=== PATIENT | male | born 1965 | race Hispanic/Latino ===

== ENCOUNTER 2017-05-20 15:18 | Emergency (ER) | payer MEDICARE ==
[2017-05-20 16:32] LABS: Basophils % (Auto) 0.6 % (0.0-1.8); Eosinophils % (Auto) 1.5 % (0.0-4.3); Hematocrit 38.2 % (35.5-45.6); Hemoglobin 12.8 gm/dl (11.8-15.2); Mean Corpuscular HGB Conc 33 % (32-34); Mean Corpuscular Hemoglobin 30 pg (28-32); Mean Corpuscular Volume 89 fl (84-94); Platelet Count 340 K/mm3 (140-440); Red Cell Distribution Width 14.4 % (13.2-15.2); White Blood Count 18.4 K/mm3 (4.5-11.0)
[2017-05-20 16:50] LABS: Anion Gap 19 mmol/L; BUN/Creatinine Ratio 11.81; Blood Urea Nitrogen 13 mg/dL (9-20); Calcium 9.1 mg/dL (8.4-10.2); Carbon Dioxide 25 mmol/L (22-30); Glucose 82 mg/dL (75-100); Potassium 4.4 mmol/L (3.6-5.0); Sodium 132 mmol/L (137-145)
--- NOTE | 2017-05-20 21:06 | Emergency Department Report ---
HPI - General Chief Complaint: Psych Time Seen by Provider: 05/20/17 21:00 - HPI HPI: Chief complaint Bonifacio Varela myself This is a 52-year-old white male with a history of schizoaffective disorder, bipolar disorder, PTSD, alcohol abuse, cocaine abuse, benzodiazepine abuse who presents to the ED with the complaint of suicidal ideation. Patient stating Damari receive inpatient treatment for similar symptoms along with his substance abuse. He initially felt better but the past 2 days he has been having thought about abusing substances, and to kill himself, does not have a plan. Patient denies any chest pain shortness of breath. He states his been having some cough congestion and sinus drainage, that are draining nature. He said that those symptoms are usually the sign of a sinus infection that he gets often. ED Past Medical Hx - Past Medical History Previous Medical History?: Yes Hx Psychiatric Treatment: Yes (schizoeffective; bipolar; PTSD; ETOH abuse; Cocaine Abuse; Benzodiapine abu) - Surgical History Past Surgical History?: No - Family History Family history: hypertension - Social History Smoking Status: Current Every Day Smoker Substance Use Type: None, Alcohol, Cocaine, Other (benzo) - Medications Home Medications: Home Medications Medication Instructions Recorded Confirmed Last Taken Type Divalproex ER [DepaKOTE ER] 2 tab PO QHS 05/22/17 05/22/17 Unknown History [place] Carbonate ER [Lithobid ER] 450 mg PO BID 05/22/17 05/22/17 Unknown History Metoprolol [Lopressor] 25 mg PO BID 05/22/17 05/22/17 Unknown History Pantoprazole [Protonix] 40 mg PO QDAY 05/22/17 05/22/17 Unknown History QUEtiapine [SEROquel] 300 mg PO QHS 05/22/17 05/22/17 Unknown History ED Review of Systems ROS: Stated complaint: PSYCH EVAL Other details as noted in HPI Comment: All other systems reviewed and negative Constitutional: no symptoms reported ENT: congestion (facial pain), other Psychiatric: depression, suicidal thoughts Physical Exam - Physical Exam Vital Signs: Vital Signs 05/20/17 16:03 Temperature 98.4 F Pulse Rate 102 H Respiratory 16 Rate Blood Pressure 134/72 O2 Sat by Pulse 100 Oximetry Physical Exam: Vital signs reviewed Gen. alert and oriented 3 in no distress Head atraumatic normocephalic Maxillary sinus tenderness. Green nasal discharge. Eyes PERR LA EOMI Chest regular rate and rhythm normal S1-S2 lungs clear bilaterally Abdomen soft nondistended Back no point tenderness paravertebral tenderness Neuro no focal deficit. Psych normal mood. Extremities right great toe with chronic, dry-appearing ulcers healed ED Course Vital Signs 05/20/17 16:03 Temperature 98.4 F Pulse Rate 102 H Respiratory 16 Rate Blood Pressure 134/72 O2 Sat by Pulse 100 Oximetry - Reevaluation(s) Reevaluation #1: 05/24/17 01:41 Patient was reexamined per psychiatry demand, because of right great toe diabetic ulcer. Patient stated he has had this lesion for 4 months. Lesion examined by [facility]. appears dry, with granulations, without drainage. This appeared to be a healed right great toe ulcer. This should not keep patient from getting into a psychiatric facility. Patient is medically clear. ED Medical Decision Making - Lab Data Result diagrams: 05/20/17 16:19 05/20/17 16:19 Critical care attestation.: If time is entered above; I have spent that time in minutes in the direct care of this critically ill patient, excluding procedure time. ED Disposition Clinical Impression: Suicidal ideations, Sinusitis Disposition: DC/TX-65 PSY HOSP/PSY UNIT Is pt being admited?: No Does the pt Need Aspirin: No Condition: Stable Referrals: PRIMARY CARE, [Primary Care Provider] - 3-5 Days
[2017-05-20 21:40] LABS: Urine Drugs of Abuse Note Disclamer
[2017-05-20 22:01] LABS: Bilirubin,Urine NEG (Negative); Blood,Urine NEG (Negative); Ketones,Urine NEG (Negative); Leukocyte Esterase,Urine NEG (Negative); Nitrite,Urine NEG (Negative); Protein,Urine <15 mg/dL mg/dL (Negative); Urobilinogen,Urine < 2.0 mg/dL (<2.0)
[2017-05-21] MEDS ORDERED: TYLENOL ONE (21:39)
[2017-05-21] MEDS ORDERED: TYLENOL PO ONE (21:47)
[2017-05-22] MEDS: LOPRESSOR PO SCH ×2 (13:42→21:54)
--- NOTE | 2017-05-22 14:21 | Consultation ---
History of Present Illness - Reason for Consult Consult date: 05/22/17 Reason for consult: Mental Health Evalution Requesting physician: CITLALI PLUNKETT - Chief Complaint Chief complaint: "I need some help" - History of Present Psychiatric Illness This is a 52-year-old white male with a history of Bipolar DO. Today patient is calm, but irritable about wanting help during the assessment. He stated that he would overdose on pills if he does not get help for his Bipolar DO. He stated being manic for the past 4 days and suicidal. 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 He stated that this bothers him a lot and feel like "" is the next best thing. He admitted to a erratic sleep pattern this last week. He admit to attempting suicide in the past by overdosing on pills and putting a gun to his head. He stated that he pulled the trigger, but the gun jammed. 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 He denies HI's and AVH's. He denies recreational drug use and excessive alcohol consumption (etoh). Medications and Allergies Allergies Allergy/AdvReac Type Severity Reaction Status Date / Time chlorpromazine HCl Allergy Anaphylaxis Verified 05/20/17 16:11 [From Thorazine] codeine Allergy Anaphylaxis Verified 05/20/17 16:12 Home Medications Medication Instructions Recorded Confirmed Last Taken Type Divalproex ER [DepaKOTE ER] 2 tab PO QHS 05/22/17 05/22/17 Unknown History [place] Carbonate ER [Lithobid ER] 450 mg PO BID 05/22/17 05/22/17 Unknown History Metoprolol [Lopressor] 25 mg PO BID 05/22/17 05/22/17 Unknown History Pantoprazole [Protonix] 40 mg PO QDAY 05/22/17 05/22/17 Unknown History QUEtiapine [SEROquel] 300 mg PO QHS 05/22/17 05/22/17 Unknown History Active Meds: Active Medications Divalproex Sodium (Depakote Er) 1,000 mg PO QHS [facility] [place] Carbonate (Lithobid Er) 450 mg PO BID [facility] Metoprolol Tartrate (Lopressor) 25 mg PO BID [facility] Last Admin: 05/22/17 13:42 Dose: 25 mg Pantoprazole Sodium (Protonix) 40 mg PO QDAY [facility] Quetiapine Fumarate (Seroquel) 300 mg PO QHS [facility] Mental Status Exam - Vital signs Last Vital Signs Temp 98.2 F 05/22/17 08:15 Pulse 85 05/22/17 13:42 Resp 18 05/22/17 13:16 BP 141/91 05/22/17 13:42 Pulse Ox 98 05/22/17 13:16 - Exam Narrative exam: ROS: (+) possibly manic MSE: Appearance: cooperative, irritable Behavior: regular eye contact Speech: loud rate and tone Mood: "horrible" Affect: labile Thought Process: circumstantial Thought Content: denies SI and AVH's Motor Activity: sitting up in bed Cognition: A/Ox 3 Insight: limited Judgment: limited Results Result Diagrams: 05/20/17 16:19 05/20/17 16:19 All other labs normal. Assessment and Plan Assessment and plan: Impression: Historical Dx: Bipolar DO. Today patient is calm, but irritable about wanting help during the assessment. Patient has SI's. DDx: R/O MDD Recommendation/Plan: Continue 1013 with placement to inpatient psy services. Continue current medication regimen. [facility] and [place] serum in the AM.
[2017-05-22 14:54] LABS: Alanine Aminotransferase 8 units/L (7-56); Alkaline Phosphatase 80 units/L (35-129)
[2017-05-22] MEDS ORDERED: ESKALITH ONE (21:25)
[2017-05-22] MEDS: LITHOBID ER PO SCH (21:53)
[2017-05-23 08:58] LABS: Lithium 0.3 mmol/L (0.0-1.2); Valproate 9.2 ug/mL (50-100)
[2017-05-23] MEDS: LITHOBID ER PO SCH ×2 (10:40→23:05)
[2017-05-23] MEDS: PROTONIX PO SCH (10:40)
[2017-05-23] MEDS: LOPRESSOR PO SCH ×2 (11:17→22:05)
--- NOTE | 2017-05-24 10:00 | Progress Note ---
Subjective - Reason for Consult Consult date: 05/23/17 Reason for consult: follow up - Chief Complaint Chief complaint: late entry for 05/23/17 "I'm doing the same" This is a 52-year-old white male with a history of Bipolar DO. Today patient reports he feels the same as when he came in. He is taking lithium, depakote, and seroquel. He wants the Seroquel increased to 300mg like he takes at home. He is hyperverbal, loud, has pressured speech, and reports feeling manic. He continues to state that he would overdose on pills if he does not get help for his Bipolar DO. He denies homicidal ideation and does not display signs of psychosis. His lithium level was 0.3 and depakote level 9.2. He is awaiting placement at a psychiatric facility. He reports having a wound under his right great toe. He also wants his Xarelto restarted. Mental Status Exam - Vital signs Last Vital Signs Temp 98.2 F 05/24/17 08:35 Pulse 72 05/24/17 08:35 Resp 18 05/24/17 08:35 BP 142/94 05/24/17 08:35 Pulse Ox 99 05/24/17 08:35 Assessment and Plan Mental Status Exam: ROS: (+) ira MSE: Appearance: cooperative, irritable Behavior: regular eye contact Speech: loud rate, hyperverbal, pressured Mood: depressed Affect: labile Thought Process: circumstantial Thought Content: denies SI and AVH Motor Activity: restless Cognition: A/Ox 3 Insight: limited Judgment: limited Assessment and plan: Impression: Bipolar DO, current episode mixed manic Suicidal ideation present with a plan [place] & Depakote level reviewed DDx: R/O MDD Recommendation/Plan: Continue 1013 with placement to inpatient psy services. Increase Seroquel to 300mg hs as an adjunct agent for mood. continue Depakote and [place] for bipolar disorder The charge nurse was informed of patient's report of wound and request for Xarelto, his home medication.
[2017-05-24] MEDS: LOPRESSOR PO SCH ×2 (10:40→22:10)
[2017-05-24] MEDS: PROTONIX PO SCH (10:41)
[2017-05-24] MEDS: LITHOBID ER PO SCH ×2 (11:02→22:11)
--- NOTE | 2017-05-24 13:07 | Progress Note ---
Subjective - Reason for Consult Consult date: 05/24/17 Reason for consult: follow up - Chief Complaint Chief complaint: "I'm a little better today." This is a 52-year-old white male with a history of Bipolar DO. Today patient reports feeling a little better as far the manic symptoms but is having urges to drink. He denies withdrawal symptoms. He is taking lithium, depakote, and seroquel. The Seroquel was increased to 300mg last night and denies side effects. He is hyperverbal, loud, has pressured speech to a lesser extent. He lacks awareness of personal boundaries. He denies homicidal ideation and does not display signs of psychosis. His lithium level was 0.3 and depakote level 9.2 05/23/17.. He is awaiting placement at a psychiatric facility. He reports having a wound under his right great toe. He also wants his Xarelto restarted. Mental Status Exam - Vital signs Last Vital Signs Temp 98.2 F 05/24/17 08:35 Pulse 72 05/24/17 08:35 Resp 18 05/24/17 08:35 BP 142/94 05/24/17 08:35 Pulse Ox 99 05/24/17 08:35 Assessment and Plan Mental Status Exam: ROS: (+) ira MSE: Appearance: cooperative Behavior: regular eye contact Speech: loud rate, hyperverbal, pressured Mood: depressed Affect: labile Thought Process: circumstantial Thought Content: denies SI and AVH Motor Activity: less restless Cognition: A/Ox 3 Insight: limited Judgment: limited Assessment and plan: Impression: Bipolar DO, current episode mixed manic Suicidal ideation present with a plan [place] & Depakote level reviewed DDx: R/O MDD Recommendation/Plan: Continue 1013 with placement to inpatient psy services. Continue Seroquel 300mg hs as an adjunct agent for mood. continue Depakote and [place] for bipolar disorder The charge nurse was informed 05/23/17 of patient's report of wound and request for Xarelto, his home medication.
[2017-05-25] MEDS: PROTONIX PO SCH (10:04)
[2017-05-25] MEDS: LOPRESSOR PO SCH ×2 (10:04→22:45)
[2017-05-25] MEDS: LITHOBID ER PO SCH ×2 (10:04→22:45)
--- NOTE | 2017-05-25 13:14 | Progress Note ---
Subjective - Reason for Consult Consult date: 05/25/17 Reason for consult: Psychiatry Follow-up - Chief Complaint Chief complaint: "I am not suicidal" This is a 52-year-old white male with a history of Bipolar DO. Today patient is calm and cooperative during the assessment. He denies SI/HI's and he mentioned that resting well last night. Patient is not hyper verbal today as he was previously. He was pleasant and answered all my questions when asked. Per the staff, no behavioral disturbances overnight. He denies AVH's and depression symptoms. He denies any side effects of his medication. Mental Status Exam - Vital signs Last Vital Signs Temp 98.5 F 05/25/17 08:02 Pulse 66 05/25/17 10:04 Resp 18 05/25/17 08:02 BP 167/88 05/25/17 10:04 Pulse Ox 97 05/25/17 08:02 - Exam Narrative exam: MSE: Appearance: calm, cooperative Behavior: regular eye contact Speech: regular rate and tone Mood: "better" Affect: congruent to mood Thought Process: circumstantial Thought Content: denies SI/HI's and AVH's Motor Activity: sitting up in bed Cognition: A/Ox 3 Insight: limited Judgment: limited Assessment and Plan Impression: Historical Dx: Bipolar DO. Today patient is calm and cooperative. Patient denies SI/HI's. Patient is homeless Recommendation/Plan: Continue 1013 with placement to inpatient psy services. Continue current medication regimen.
[2017-05-26] MEDS: LITHOBID ER PO SCH ×2 (10:14→22:13)
[2017-05-26] MEDS: PROTONIX PO SCH (10:15)
[2017-05-26] MEDS: LOPRESSOR PO SCH ×2 (10:20→22:13)
--- NOTE | 2017-05-26 11:13 | Progress Note ---
Subjective - Reason for Consult Consult date: 05/26/17 Reason for consult: Psychiatry Follow-up - Chief Complaint Chief complaint: "I am ready to leave" This is a 52-year-old white male with a history of Bipolar DO. Today patient is calm and cooperative during the assessment. Patient is pleasant during our conversation. He denies SI/HI's and AVH's. Patient is not hyper verbal today. He stated that he sleep well last night. Per the staff, no behavioral disturbances overnight. He denies AVH's and depression symptoms. He denies any side effects of his medication. Mental Status Exam - Vital signs Last Vital Signs Temp 98.7 F 05/25/17 20:41 Pulse 70 05/25/17 22:45 Resp 16 05/25/17 20:41 BP 158/89 05/25/17 22:45 Pulse Ox 99 05/25/17 20:41 - Exam Narrative exam: MSE: Appearance: calm, cooperative Behavior: regular eye contact Speech: regular rate and tone Mood: "better" Affect: congruent to mood Thought Process: circumstantial Thought Content: denies SI/HI's and AVH's Motor Activity: sitting up in bed Cognition: A/Ox 3 Insight: limited Judgment: limited Assessment and Plan Impression: Historical Dx: Bipolar DO. Today patient is calm and cooperative. Patient denies SI/HI's. Patient is homeless Recommendation/Plan: Evaluate 1013 in 24 hours to determine proper dispo. Continue current medication regimen. Why/[facility] ordered tomorrow morning.
[2017-05-27 08:37] LABS: Lithium 0.5 mmol/L (0.0-1.2); Valproate 33.4 ug/mL (50-100)
[2017-05-27] MEDS: LOPRESSOR PO SCH (10:46)
[2017-05-27] MEDS: PROTONIX PO SCH (10:46)
[2017-05-27] MEDS: LITHOBID ER PO SCH (10:46)
[2017-05-27 10:47] VITALS: BP 134/82
--- NOTE | 2017-05-27 17:12 | Progress Note ---
Subjective - Reason for Consult Consult date: 05/27/17 Reason for consult: follow-up - Chief Complaint Chief complaint: "I am ready to leave" This is a 52-year-old white male with a history of Bipolar DO. Today patient is calm and cooperative during the assessment. Patient is pleasant during our conversation. He denies suicidal or homicidal ideation. No psychotic symptoms reported and no signs observed. His speech is not pressured as it has been. He reports his sleep and appetite are appropriate. He expresses future oriented thinking and planning. He denies withdrawal symptoms from alcohol. He is past the point withdrawal. He denies urges to drink but plans to follow- up with AA. His primary objective is to find an apartment and go to outpatient substance abuse treatment. Mental Status Exam - Vital signs Last Vital Signs Temp 97.8 F 05/27/17 11:06 Pulse 93 H 05/27/17 11:06 Resp 18 05/27/17 11:06 BP 134/82 05/27/17 11:06 Pulse Ox 98 05/27/17 11:06 Assessment and Plan MSE: Appearance: cooperative Behavior: regular eye contact Speech: Regular rate and rhythm Mood: "Good" Affect: Appropriate Thought Process: Linear and goal oriented Thought Content: denies SI. Denies homicidal ideation and AVH Motor Activity: No abnormal movements Cognition: A/Ox 3 Insight: Improved, fair Judgment: Fair I. This screening and assessment is based on information collected from the following sources: Patient II. SUICIDE RISK SCREENING (within last 30 days): A.) Suicidal thoughts/behaviors: When he initially presented to the emergency department he expressed suicidal ideation. The crisis has subsided. He currently does not have suicidal ideation and has not had suicidal ideation for several days now. *Describe details of recent ideation or attempt: None SUICIDE RISK ASSESSMENT III. FACTORS THAT INCREASE RISK: A.) Demographic and Substance Use Factors: B.) Current/Recent Factors (within past 3 months): Psychosocial/Environmental Factors: Needs housing Physical Illness: has vascular disease Cognitive/Psychological Factors: Recent Jane C.) Historical Factors: History of bipolar disorder. D.) Diagnostic/Symptom/Treatment Factors: Jane has resolved E.) Acute Risk Factor Severity Mild Other factors for this individual that increase risk: None IV. FACTORS THAT DECREASE RISK: Resilience/Protective Factors: Other factors for this individual that decrease risk: Patient is compliant with psychiatric medications. Patient is not intoxicated and plans to continue abstinence from alcohol. V. Clinician's Formulation of Risk and Determination of level of Care: The acute symptoms are resolved and his current presentation lends itself to outpatient treatment and appears support meetings. Estimation of Imminent Risk: Low risk Determination of Level of Care based on Suicide Risk: Outpatient psychiatric treatment and 12-step peer support meetings Narrative description of clinical reasoning. (This must be completed on all patients): The patient initially presented to the hospital he was withdrawing from alcohol and experiencing a manic episode. His lithium is currently therapeutic and he is now back on Depakote. He has a plan to follow up is with his outpatient psychiatric provider. He is no longer experiencing withdrawal symptoms from alcohol and does not require further detox. He denies any urges to drink and expresses future and goal oriented thinking and planning. He plans to find housing and has funds available to do so. He also has plans to attend AA meetings, 90 meetings in 90 days. . Plan and Interventions based on Suicide Risk: follow-up with outpatient mental health VII. Discharge/After Hours Support Plan: {AFTER HOURS SUPPORT PLAN} Call 911 for suicidal or homicidal ideation Assessment and plan: Impression: Bipolar DO, most recent episode mixed manic Crisis has resolved. No suicidal ideation reported and there are no acute safety concerns reported by the patient or staff. Alcohol use disorder. Withdrawal symptoms are not present. There is no indication to go to an inpatient facility for detox. [place] level is therapeutic at 0.5 Depakote level is 33.4 Recommendation/Plan: Rescind 1013 and follow-up with outpatient mental health. A list of AA meetings will be provided. Patient reports having the funds available to obtain an apartment or living arrangement
--- NOTE | 2017-05-27 19:18 | Emergency Department Report ---
HPI - General Chief Complaint: Psych Time Seen by Provider: 05/20/17 21:00 ED Past Medical Hx - Past Medical History Previous Medical History?: Yes Hx Psychiatric Treatment: Yes (schizoeffective; bipolar; PTSD; ETOH abuse; Cocaine Abuse; Benzodiapine abu) - Surgical History Past Surgical History?: No - Social History Smoking Status: Current Every Day Smoker Substance Use Type: None, Alcohol, Cocaine, Other (benzo) - Medications Home Medications: Home Medications Medication Instructions Recorded Confirmed Last Taken Type Divalproex ER [DepaKOTE ER] 2 tab PO QHS 05/22/17 05/22/17 Unknown History [place] Carbonate ER [Lithobid ER] 450 mg PO BID 05/22/17 05/22/17 Unknown History Metoprolol [Lopressor] 25 mg PO BID 05/22/17 05/22/17 Unknown History Pantoprazole [Protonix] 40 mg PO QDAY 05/22/17 05/22/17 Unknown History QUEtiapine [SEROquel] 300 mg PO QHS 05/22/17 05/22/17 Unknown History ED Review of Systems ROS: Stated complaint: PSYCH EVAL Other details as noted in HPI Constitutional: no symptoms reported ENT: congestion (facial pain), other Psychiatric: depression, suicidal thoughts Physical Exam - Physical Exam Vital Signs: Vital Signs 05/20/17 05/21/17 05/21/17 16:03 10:07 12:27 Temperature 98.4 F 98 F Pulse Rate 102 H 102 H Respiratory 16 20 16 Rate Blood Pressure 134/72 Blood Pressure 170/98 [Right] O2 Sat by Pulse 100 99 100 Oximetry 05/21/17 05/22/17 05/22/17 20:07 08:15 08:17 Temperature 97.9 F 98.2 F Pulse Rate 81 82 Respiratory 17 14 14 Rate Blood Pressure Blood Pressure 139/93 151/85 [Right] O2 Sat by Pulse 99 97 97 Oximetry 05/22/17 05/22/17 05/22/17 13:16 13:42 23:00 Temperature 98.8 F Pulse Rate 85 85 75 Respiratory 18 16 Rate Blood Pressure 141/91 Blood Pressure 141/91 142/88 [Right] O2 Sat by Pulse 98 100 Oximetry 05/23/17 05/23/17 05/23/17 11:00 11:17 23:00 Temperature 98 F 98.5 F Pulse Rate 75 75 67 Respiratory 20 16 Rate Blood Pressure 139/89 Blood Pressure 139/89 145/89 [Right] O2 Sat by Pulse 98 98 Oximetry 05/24/17 05/25/17 05/25/17 08:35 08:02 10:04 Temperature 98.2 F 98.5 F Pulse Rate 72 66 66 Respiratory 18 18 Rate Blood Pressure 167/88 Blood Pressure 142/94 167/88 [Right] O2 Sat by Pulse 99 97 Oximetry 05/25/17 05/25/17 05/26/17 20:41 22:45 08:30 Temperature 98.7 F 98.6 F Pulse Rate 70 70 81 Respiratory 16 20 Rate Blood Pressure 158/89 Blood Pressure 158/89 124/77 [Right] O2 Sat by Pulse 99 100 Oximetry 05/26/17 05/26/17 05/27/17 10:20 20:37 10:46 Temperature 98.6 F Pulse Rate 81 74 93 H Respiratory 17 Rate Blood Pressure 124/77 134/82 Blood Pressure 161/83 [Right] O2 Sat by Pulse 100 Oximetry 05/27/17 11:06 Temperature 97.8 F Pulse Rate 93 H Respiratory 18 Rate Blood Pressure Blood Pressure 134/82 [Right] O2 Sat by Pulse 98 Oximetry ED Course Vital Signs 05/20/17 05/21/17 05/21/17 16:03 10:07 12:27 Temperature 98.4 F 98 F Pulse Rate 102 H 102 H Respiratory 16 20 16 Rate Blood Pressure 134/72 Blood Pressure 170/98 [Right] O2 Sat by Pulse 100 99 100 Oximetry 05/21/17 05/22/17 05/22/17 20:07 08:15 08:17 Temperature 97.9 F 98.2 F Pulse Rate 81 82 Respiratory 17 14 14 Rate Blood Pressure Blood Pressure 139/93 151/85 [Right] O2 Sat by Pulse 99 97 97 Oximetry 05/22/17 05/22/17 05/22/17 13:16 13:42 23:00 Temperature 98.8 F Pulse Rate 85 85 75 Respiratory 18 16 Rate Blood Pressure 141/91 Blood Pressure 141/91 142/88 [Right] O2 Sat by Pulse 98 100 Oximetry 05/23/17 05/23/17 05/23/17 11:00 11:17 23:00 Temperature 98 F 98.5 F Pulse Rate 75 75 67 Respiratory 20 16 Rate Blood Pressure 139/89 Blood Pressure 139/89 145/89 [Right] O2 Sat by Pulse 98 98 Oximetry 05/24/17 05/25/17 05/25/17 08:35 08:02 10:04 Temperature 98.2 F 98.5 F Pulse Rate 72 66 66 Respiratory 18 18 Rate Blood Pressure 167/88 Blood Pressure 142/94 167/88 [Right] O2 Sat by Pulse 99 97 Oximetry 05/25/17 05/25/17 05/26/17 20:41 22:45 08:30 Temperature 98.7 F 98.6 F Pulse Rate 70 70 81 Respiratory 16 20 Rate Blood Pressure 158/89 Blood Pressure 158/89 124/77 [Right] O2 Sat by Pulse 99 100 Oximetry 05/26/17 05/26/17 05/27/17 10:20 20:37 10:46 Temperature 98.6 F Pulse Rate 81 74 93 H Respiratory 17 Rate Blood Pressure 124/77 134/82 Blood Pressure 161/83 [Right] O2 Sat by Pulse 100 Oximetry 05/27/17 11:06 Temperature 97.8 F Pulse Rate 93 H Respiratory 18 Rate Blood Pressure Blood Pressure 134/82 [Right] O2 Sat by Pulse 98 Oximetry ED Medical Decision Making - Lab Data Result diagrams: 05/20/17 16:19 05/20/17 16:19 - Medical Decision Making Discussed asked the patient he is ready to be discharged. 1013 was rescinded by psychiatry. Patient is calm and has resources. Plan at discharge. Critical care attestation.: If time is entered above; I have spent that time in minutes in the direct care of this critically ill patient, excluding procedure time. ED Disposition Clinical Impression: Bipolar disorder Disposition: DC/TX-65 PSY HOSP/PSY UNIT Is pt being admited?: No Condition: Poor Instructions: Bipolar Disorder (ED), Suicide Prevention for Adults (ED), Abuse of Alcohol (ED) Additional Instructions: Follow-up with her primary care for appropriate social media developer Referrals: MACK PHOENIX MD [Primary Care Provider] - 3-5 Days
== END 2017-05-27 21:04 ==
LOC: EEVIPCON 15:18 → ED 15:18
DX: F31.9 Bipolar disorder, unspecified (principal); F20.9 Schizophrenia, unspecified; F14.10 Cocaine abuse, uncomplicated; F17.210 Nicotine dependence, cigarettes, uncomplicated
CPT/HCPCS: 36415; 80048; 80164; 80178; 80307; 81001; 84075; 84450; 84460; 85025; 99285; G0480; 80320; 99283; 99284

== ENCOUNTER 2017-06-05 17:04 | Emergency (ER) | payer SELFPAY ==
[2017-06-05 19:08] LABS: Basophils % (Auto) 0.7 % (0.0-1.8); Eosinophils % (Auto) 3.3 % (0.0-4.3); Hematocrit 40.7 % (35.5-45.6); Hemoglobin 13.4 gm/dl (11.8-15.2); Mean Corpuscular HGB Conc 33 % (32-34); Mean Corpuscular Hemoglobin 30 pg (28-32); Mean Corpuscular Volume 91 fl (84-94); Platelet Count 255 K/mm3 (140-440); Red Blood Count 4.48 M/mm3 (3.65-5.03); Red Cell Distribution Width 14.9 % (13.2-15.2); White Blood Count 11.2 K/mm3 (4.5-11.0)
[2017-06-05 19:20] LABS: Alanine Aminotransferase 7 units/L (7-56); Albumin 4.6 g/dL (3.9-5); Albumin/Globulin Ratio 1.8 %; Alkaline Phosphatase 88 units/L (35-129); Anion Gap 18 mmol/L; Blood Urea Nitrogen 18 mg/dL (9-20); Calcium 9.5 mg/dL (8.4-10.2); Carbon Dioxide 25 mmol/L (22-30); Chloride 95.2 mmol/L (98-107); Glucose 116 mg/dL (75-100); Potassium 4.4 mmol/L (3.6-5.0); Sodium 134 mmol/L (137-145); Total Protein 7.2 g/dL (6.3-8.2)
--- NOTE | 2017-06-05 21:13 | Emergency Department Report ---
HPI - General Chief Complaint: Psych Time Seen by Provider: 06/05/17 20:15 - HPI HPI: This is a 52-year-old male presents to the emergency department by EMS with complaint of nausea, vomiting, diarrhea and some thoughts of harming himself without a plan. The patient was recently here and spent close to a week with an exacerbation of his schizoaffective and bipolar disorder. He then went to a place called [facility] which is a drug and alcohol free residence and the patient says that he has not had any of the illicit substances or alcohol since mid May. However since being at this [employer] [facility] [employer], patient has been unable to get his lithium until yesterday. Because of this he feels like he is once again having exacerbation of his psychiatric illnesses. He is having racing thoughts and has thoughts of harming himself but does not have a plan is how he would do it. He denies any auditory or visual hallucinations. When he started having the thoughts of harming himself he decided he should call EMS. He denies any current nausea or vomiting but still has some diarrhea. ED Past Medical Hx - Past Medical History Hx Psychiatric Treatment: Yes (schizoeffective; bipolar; PTSD; ETOH abuse; Cocaine Abuse; Benzodiapine abu) - Social History Smoking Status: Current Every Day Smoker Substance Use Type: None - Medications Home Medications: Home Medications Medication Instructions Recorded Confirmed Last Taken Type Divalproex ER [DepaKOTE ER] 2 tab PO QHS 05/22/17 06/05/17 06/05/17 History [place] Carbonate ER [Lithobid ER] 450 mg PO BID 05/22/17 06/05/17 06/05/17 History Metoprolol [Lopressor] 25 mg PO BID 05/22/17 06/05/17 06/05/17 History QUEtiapine [SEROquel] 300 mg PO QHS 05/22/17 06/05/17 06/05/17 History Gabapentin [Neurontin] 100 mg PO Q8HR 06/05/17 06/05/17 06/05/17 History Rivaroxaban [Xarelto] 20 mg PO QDAY 06/05/17 06/05/17 06/05/17 History ED Review of Systems ROS: Stated complaint: SUICIDAL THOUGHTS Other details as noted in HPI Comment: All other systems reviewed and negative Constitutional: denies: chills, fever Eyes: denies: eye pain, eye discharge, vision change ENT: denies: ear pain, throat pain Respiratory: denies: cough, shortness of breath, wheezing Cardiovascular: denies: chest pain, palpitations Gastrointestinal: nausea, vomiting, diarrhea Genitourinary: denies: urgency, dysuria Musculoskeletal: denies: back pain, joint swelling, arthralgia Skin: denies: rash, lesions Neurological: denies: headache, weakness, paresthesias Psychiatric: suicidal thoughts. denies: auditory hallucinations, visual hallucinations, homicidal thoughts Physical Exam - Physical Exam Vital Signs: Vital Signs 06/05/17 18:23 Temperature 98.7 F Pulse Rate 74 Respiratory 16 Rate Blood Pressure 127/90 Blood Pressure 127/90 [Right] O2 Sat by Pulse 100 Oximetry Physical Exam: GENERAL: The patient is well-developed well-nourished. HEENT: Normocephalic. Atraumatic. Extraocular motions are intact. Patient has moist mucous membranes. Pupils equal reactive to light bilaterally. NECK: Supple. Trachea is midline. CHEST/LUNGS: Clear to auscultation. There is no respiratory distress noted. HEART/CARDIOVASCULAR: Regular. There is no tachycardia. There is no gallop rub or murmur. ABDOMEN: Abdomen is soft, nontender. Patient has normal bowel sounds. There is no abdominal distention. SKIN: Skin is warm and dry. NEURO: The patient is awake, alert, and oriented. The patient is cooperative. The patient has no focal neurologic deficits. The patient has normal speech and gait. MUSCULOSKELETAL: There is no tenderness or deformity. There is no limitation range of motion. There is no evidence of acute injury. ED Course Vital Signs 06/05/17 18:23 Temperature 98.7 F Pulse Rate 74 Respiratory 16 Rate Blood Pressure 127/90 Blood Pressure 127/90 [Right] O2 Sat by Pulse 100 Oximetry ED Medical Decision Making - Lab Data Result diagrams: 06/05/17 18:33 06/05/17 18:33 - Medical Decision Making 52-year-old male with history of schizoaffective and bipolar disorder presents with some suicidal thoughts without a plan. The patient was without his lithium for about 5 days until yesterday. On labs he does not appear subtherapeutic on the lithium but he does with the Depakene. His labs are mostly unremarkable otherwise and do not show any etiology of his symptoms. Vital signs stable. Patient appears medically cleared for psychiatric placement. He has been made a 1013 secondary to the suicidal ideations and the behavioral counselor has been contacted to assist with placement. - Differential Diagnosis schizophrenia, schizoaffective, bipolar, depression Critical Care Time: No Critical care attestation.: If time is entered above; I have spent that time in minutes in the direct care of this critically ill patient, excluding procedure time. ED Disposition Clinical Impression: Suicidal ideations Bipolar disorder Qualifiers: Active/Remission status: remission status unspecified Qualified Code(s): F31.9 - Bipolar disorder, unspecified Schizoaffective disorder Qualifiers: Schizoaffective disorder type: unspecified Qualified Code(s): F25.9 - Schizoaffective disorder, unspecified Disposition: [id number] PSY HOSP/PSY UNIT Is pt being admited?: No Condition: Stable Referrals: PRIMARY CARE, [Primary Care Provider] - 3-5 Days Time of Disposition: 22:06
[2017-06-05 21:41] LABS: Lithium 0.5 mmol/L (0.0-1.2)
[2017-06-05 21:44] LABS: Valproate < 2.8 ug/mL (50-100)
[2017-06-05] MEDS: LITHOBID ER PO SCH (23:01)
[2017-06-05] MEDS: LOPRESSOR PO SCH (23:03)
[2017-06-05] MEDS: NEURONTIN PO SCH (23:06)
[2017-06-06] MEDS: NEURONTIN PO SCH ×3 (07:57→21:39)
[2017-06-06] MEDS: LOPRESSOR PO SCH ×2 (10:05→21:38)
[2017-06-06] MEDS: LITHOBID ER PO SCH ×2 (10:05→21:38)
[2017-06-06] MEDS: XARELTO PO SCH (11:36)
[2017-06-06] MEDS ORDERED: KEFLEX PO ONE (14:26)
[2017-06-06] MEDS ORDERED: KEFLEX ONE ×2 (16:42→16:44)
[2017-06-07] MEDS: LITHOBID ER PO SCH ×2 (10:57→22:24)
[2017-06-07] MEDS: NEURONTIN PO SCH ×3 (10:57→22:23)
[2017-06-07] MEDS: XARELTO PO SCH (10:57)
[2017-06-07] MEDS: LOPRESSOR PO SCH ×2 (10:58→22:24)
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
[2017-06-08] MEDS: NEURONTIN PO SCH ×3 (08:31→21:58)
[2017-06-08] MEDS: XARELTO PO SCH (08:32)
[2017-06-08] MEDS: LOPRESSOR PO SCH ×2 (09:42→21:58)
[2017-06-08] MEDS: LITHOBID ER PO SCH ×2 (09:44→21:58)
--- NOTE | 2017-06-08 12:59 | Progress Note ---
Subjective - Reason for Consult Consult date: 06/08/17 Reason for consult: Psychiatry Follow-up - Chief Complaint Chief complaint: "I don't feel good" This is a 52-year-old male presents to the emergency department by EMS with complaint of nausea, vomiting, diarrhea and some thoughts of harming himself without a plan. Patient is known to me. Today patient is calm and cooperative during assessment. He stated that the voices have increased. He stated that he thought about suicide last night and could not sleep. He was adamant about wanting the voices to stop. Also, he stated that his sleep needs to get better. He denies any side effects of his medications. Mental Status Exam - Vital signs Last Vital Signs Temp 97.9 F 06/08/17 07:46 Pulse 74 06/08/17 09:42 Resp 16 06/08/17 07:46 BP 131/80 06/08/17 09:42 Pulse Ox 100 06/08/17 07:46 - Exam Narrative exam: MSE: Appearance: calm, cooperative Behavior: regular eye contact Speech: Regular rate and rhythm Mood: "not good" Affect: flat Thought Process: circumstantial Thought Content: denies HI's and AVH's Motor Activity: lying in bed Cognition: A/Ox 3 Insight: limited Judgment: limited Assessment and Plan Impression: Historical Dx: Bipolar DO, PTSD, and Alcoholism. Today patient is calm and cooperative during the assessment. Active SI's. No alcohol withdrawals noted. VA 32.9 Recommendation/Plan: Continue 1013 with placement to inpatient psy services. Continue current medication treatment with modification to Seroquel (400 mg PO HS).
--- NOTE | 2017-06-09 10:10 | Progress Note ---
Subjective - Reason for Consult Consult date: 06/09/17 Reason for consult: Mental Health Evaluation - Chief Complaint Chief complaint: "I feel better" This is a 52-year-old male presents to the emergency department by EMS with complaint of nausea, vomiting, diarrhea and some thoughts of harming himself without a plan. Patient is known to me. Today patient is calm and cooperative during assessment. He stated that the voices have decreased along with the SI's. He wants to return to his group once discharged ([facility]) . He stated that he slept well last night. He denies any side effects of his medications. Mental Status Exam - Vital signs Last Vital Signs Temp 98.4 F 06/09/17 08:20 Pulse 88 06/09/17 08:20 Resp 20 06/09/17 08:20 BP 130/84 06/09/17 08:20 Pulse Ox 100 06/09/17 08:20 - Exam Narrative exam: MSE: Appearance: calm, cooperative Behavior: regular eye contact Speech: Regular rate and rhythm Mood: "a little better" Affect: flat Thought Process: circumstantial Thought Content: denies HI's and VH's, Passive SI's Motor Activity: lying in bed Cognition: A/Ox 3 Insight: variable Judgment: variable Assessment and Plan Impression: Historical Dx: Bipolar DO, PTSD, and Alcoholism. Today patient is calm and cooperative during the assessment. Passive SI's. VA 32.9 Recommendation/Plan: Continue 1013 with placement to inpatient psy services. Continue current medication regimen.
[2017-06-09] MEDS: NEURONTIN PO SCH ×3 (10:21→22:29)
[2017-06-09] MEDS: LOPRESSOR PO SCH ×2 (10:32→22:29)
[2017-06-09] MEDS: XARELTO PO SCH (13:30)
[2017-06-09] MEDS: LITHOBID ER PO SCH ×2 (13:30→22:29)
[2017-06-10] MEDS: NEURONTIN PO SCH ×2 (07:02→14:05)
[2017-06-10 07:57] VITALS: BP 128/87
[2017-06-10] MEDS: LOPRESSOR PO SCH (10:01)
[2017-06-10] MEDS: LITHOBID ER PO SCH (10:01)
[2017-06-10] MEDS: XARELTO PO SCH (10:01)
--- NOTE | 2017-06-10 14:19 | Progress Note ---
Subjective - Reason for Consult Consult date: 06/10/17 Reason for consult: follow up - Chief Complaint Chief complaint: "I'm doing better." This is a 52-year-old male presents to the emergency department by EMS with complaint of nausea, vomiting, diarrhea and some thoughts of harming himself without a plan. Patient is known to me and the psychiatric team. Today patient is calm and cooperative during assessment. He stated that the voices have decreased along with the SI's. He discusses his unstable living situation and need for medication compliance. Mental Status Exam - Vital signs Last Vital Signs Temp 98 F 06/10/17 07:57 Pulse 75 06/10/17 07:57 Resp 16 06/10/17 07:58 BP 128/87 06/10/17 07:57 Pulse Ox 100 06/10/17 07:58 Assessment and Plan MSE: Appearance: calm, cooperative Behavior: regular eye contact Speech: Regular rate and rhythm Mood: "a little better" Affect: flat Thought Process: circumstantial Thought Content: denies HI's and VH's, Passive SI's Motor Activity: lying in bed Cognition: A/Ox 3 Insight: variable Judgment: variable Assessment and Plan Impression: Historical Dx: Bipolar DO, PTSD, and Alcohol use disorder. Today patient is calm and cooperative during the assessment. Passive SI's. Recommendation/Plan: Continue 1013 with placement to inpatient psy services. Continue current medication regimen.
== END 2017-06-10 16:42 ==
LOC: EEVIPCON 17:04 → ED 17:04
DX: F31.9 Bipolar disorder, unspecified (principal); F25.9 Schizoaffective disorder, unspecified; R45.851 Suicidal ideations; F17.200 Nicotine dependence, unspecified, uncomplicated
CPT/HCPCS: 36415; 80053; 80164; 80178; 85025; 99285; G0480; 80320

== ENCOUNTER 2017-07-10 08:47 | Outpatient (CLI) | payer MEDICARE ==
[2017-07-10] MEDS ORDERED: XYLOCAINE TOPICAL 4% TP ONE ×2 (11:15→16:11)
== END 2017-07-10 08:48 | disposition home or self-care (01) ==
LOC: WOUND 08:47
PROVIDERS: ATTEND Podiatrist
DX: I87.2 Venous insufficiency (chronic) (peripheral) (principal); E11.621 Type 2 diabetes mellitus with foot ulcer; L97.512 Non-pressure chronic ulcer of other part of right foot with fat layer exposed; E11.40 Type 2 diabetes mellitus with diabetic neuropathy, unspecified; B35.1 Tinea unguium; H91.90 Unspecified hearing loss, unspecified ear; L84 Corns and callosities; F31.9 Bipolar disorder, unspecified; F17.200 Nicotine dependence, unspecified, uncomplicated; F32.9 Major depressive disorder, single episode, unspecified; Z96.659 Presence of unspecified artificial knee joint
CPT/HCPCS: 11042; 11055; 11721; 87075; 87076; 87116; 87186; G0463

== ENCOUNTER 2017-07-24 08:18 | Outpatient (CLI) | payer MEDICARE ==
[2017-07-24] MEDS ORDERED: XYLOCAINE TOPICAL 4% TP ONE (08:42)
== END 2017-07-24 08:19 | disposition home or self-care (01) ==
LOC: WOUND 08:18
PROVIDERS: ATTEND Podiatrist
DX: E11.621 Type 2 diabetes mellitus with foot ulcer (principal); L97.512 Non-pressure chronic ulcer of other part of right foot with fat layer exposed; E11.40 Type 2 diabetes mellitus with diabetic neuropathy, unspecified; F31.9 Bipolar disorder, unspecified; F17.200 Nicotine dependence, unspecified, uncomplicated; Z96.659 Presence of unspecified artificial knee joint

== ENCOUNTER 2017-07-31 08:37 | Outpatient (CLI) | payer MEDICARE ==
[2017-07-31] MEDS ORDERED: XYLOCAINE TOPICAL 4% TP ONE ×2 (09:07→09:18)
[2017-07-31] MEDS ORDERED: SILVER NITRATE TP ONE ×2 (09:44→14:54)
== END 2017-07-31 08:38 | disposition home or self-care (01) ==
LOC: WOUND 08:37
PROVIDERS: ATTEND Podiatrist
DX: E11.621 Type 2 diabetes mellitus with foot ulcer (principal); L97.512 Non-pressure chronic ulcer of other part of right foot with fat layer exposed; E11.42 Type 2 diabetes mellitus with diabetic polyneuropathy; L89.892 Pressure ulcer of other site, stage 2; F32.9 Major depressive disorder, single episode, unspecified; F31.9 Bipolar disorder, unspecified; F14.10 Cocaine abuse, uncomplicated; F43.10 Post-traumatic stress disorder, unspecified; F17.200 Nicotine dependence, unspecified, uncomplicated; Z96.659 Presence of unspecified artificial knee joint

== ENCOUNTER 2018-05-08 19:05 | Emergency (ER) | payer MEDICARE ==
[2018-05-08 20:10] LABS: Bilirubin,Urine NEG (Negative); Blood,Urine NEG (Negative); Color,Urine Straw (Yellow); Protein,Urine <15 mg/dL mg/dL (Negative); Urobilinogen,Urine < 2.0 mg/dL (<2.0)
[2018-05-08 20:15] LABS: RBC,Urine < 1.0 /HPF (0.0-6.0)
[2018-05-08 20:17] LABS: Basophils # (Auto) 0.2 K/mm3 (0.0-0.1); Basophils % (Auto) 2.1 % (0.0-1.8); Eosinophils # (Auto) 0.4 K/mm3 (0.0-0.4); Eosinophils % (Auto) 3.8 % (0.0-4.3); Hemoglobin 12.6 gm/dl (11.8-15.2); Lymphocytes # (Auto) 1.5 K/mm3 (1.2-5.4); Lymphocytes % (Auto) 15.4 % (13.4-35.0); Mean Corpuscular HGB Conc 34 % (32-34); Mean Corpuscular Hemoglobin 29 pg (28-32); Mean Corpuscular Volume 86 fl (84-94); Monocytes # (Auto) 0.6 K/mm3 (0.0-0.8); Monocytes % (Auto) 5.9 % (0.0-7.3); Platelet Count 290 K/mm3 (140-440); Red Blood Count 4.29 M/mm3 (3.65-5.03); Red Cell Distribution Width 14.9 % (13.2-15.2)
[2018-05-08 20:17] LABS: Amphetamine Screen,Urine PRESUMPTIVE NEGATIVE; Benzodiazepines Screen,Urine PRESUMPTIVE NEGATIVE; Cannabinoid Screen,Urine PRESUMPTIVE NEGATIVE; Cocaine Screen,Urine PRESUMPTIVE NEGATIVE; Methadone Screen,Urine PRESUMPTIVE NEGATIVE; Opiate Screen,Urine PRESUMPTIVE NEGATIVE
[2018-05-08 20:22] LABS: BUN/Creatinine Ratio 12; Blood Urea Nitrogen 11 mg/dL (9-20); Calcium 9.5 mg/dL (8.4-10.2); Hemolysis Index 2
--- NOTE | 2018-05-08 20:42 | Emergency Department Report ---
ED General Adult HPI - General Chief complaint: Medical Clearance Stated complaint: MEDICAL CLEARANCE Time Seen by Provider: 05/08/18 20:37 Source: patient, EMS (ems notes not available at time of chart dictation), RN notes reviewed, old records reviewed Mode of arrival: Stretcher Limitations: No Limitations - History of Present Illness Initial comments: This is a 52-year-old male. The patient is known to this provider previously. 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 He presents to the ER for medical clearance to go to a local psychiatric facility. He reports that he has really indulged in alcohol and feels like his PTSD is acting he denies headache, neck pain, chest pain, abdominal pain, shortness of breath and urinary symptoms. He also denies homicidality, suicidality, access to guns, firearms, and intentional overdose. He has no medical complaints at this time.. -: Gradual Quality: other Improves with: none Worsens with: none Associated Symptoms: denies: confusion, chest pain, cough, diaphoresis, fever/ chills, headaches, loss of appetite, malaise, nausea/vomiting, rash, seizure, shortness of breath, syncope, weakness - Related Data Home Medications Medication Instructions Recorded Confirmed Last Taken Divalproex ER [DepaKOTE ER] 2 tab PO QHS 05/22/17 06/05/17 06/05/17 [place] Carbonate ER [Lithobid ER] 450 mg PO BID 05/22/17 06/05/17 06/05/17 Metoprolol [Lopressor] 25 mg PO BID 05/22/17 06/05/17 06/05/17 QUEtiapine [SEROquel] 300 mg PO QHS 05/22/17 06/05/17 06/05/17 Gabapentin [Neurontin] 100 mg PO Q8HR 06/05/17 06/05/17 06/05/17 Rivaroxaban [Xarelto] 20 mg PO QDAY 06/05/17 06/05/17 06/05/17 Previous Rx's Medication Instructions Recorded Last Taken Type Naproxen 500 mg PO BID PRN #60 tablet 08/28/17 Unknown Rx Sulfamethoxazole/Trimethoprim 1 each PO BID #20 tablet 08/28/17 Unknown Rx [Bactrim DS TAB] Allergies Allergy/AdvReac Type Severity Reaction Status Date / Time chlorpromazine HCl Allergy Anaphylaxis Verified 05/08/18 19:43 [From Thorazine] codeine Allergy Anaphylaxis Verified 05/08/18 19:43 ED Review of Systems ROS: Stated complaint: MEDICAL CLEARANCE Other details as noted in HPI Constitutional: denies: fever Eyes: denies: vision change ENT: denies: epistaxis Respiratory: denies: cough Cardiovascular: denies: chest pain Gastrointestinal: denies: abdominal pain Genitourinary: denies: dysuria Skin: as per HPI. denies: lesions Neurological: denies: weakness Psychiatric: denies: homicidal thoughts, suicidal thoughts ED Past Medical Hx - Past Medical History Hx Psychiatric Treatment: Yes (schizoeffective; bipolar; PTSD; ETOH abuse; Cocaine Abuse; Benzodiapine abu) Additional medical history: hx of Gout - Surgical History Hx Appendectomy: Yes Additional Surgical History: Rt knee replacement, neck and spinal fusion - Social History Smoking Status: Current Every Day Smoker Substance Use Type: None - Medications Home Medications: Home Medications Medication Instructions Recorded Confirmed Last Taken Type Divalproex ER [DepaKOTE ER] 2 tab PO QHS 05/22/17 06/05/17 06/05/17 History [place] Carbonate ER [Lithobid ER] 450 mg PO BID 05/22/17 06/05/17 06/05/17 History Metoprolol [Lopressor] 25 mg PO BID 05/22/17 06/05/17 06/05/17 History QUEtiapine [SEROquel] 300 mg PO QHS 05/22/17 06/05/17 06/05/17 History Gabapentin [Neurontin] 100 mg PO Q8HR 06/05/17 06/05/17 06/05/17 History Rivaroxaban [Xarelto] 20 mg PO QDAY 06/05/17 06/05/17 06/05/17 History Naproxen 500 mg PO BID PRN #60 tablet 08/28/17 Unknown Rx Sulfamethoxazole/Trimethoprim 1 each PO BID #20 tablet 08/28/17 Unknown Rx [Bactrim DS TAB] ED Physical Exam - General Limitations: No Limitations General appearance: alert, in no apparent distress - Head Head exam: Present: atraumatic, normocephalic - Eye Eye exam: Present: normal appearance, EOMI. Absent: nystagmus - ENT ENT exam: Present: normal exam, normal orophraynx, mucous membranes moist, normal external ear exam - Neck Neck exam: Present: normal inspection, full ROM - Respiratory Respiratory exam: Present: normal lung sounds bilaterally. Absent: respiratory distress - Cardiovascular Cardiovascular Exam: Present: regular rate, normal rhythm, normal heart sounds. Absent: systolic murmur, diastolic murmur, rubs, gallop - GI/Abdominal GI/Abdominal exam: Present: soft, normal bowel sounds. Absent: distended, tenderness, guarding, rebound, rigid, pulsatile mass - Rectal Rectal exam: Present: deferred - Extremities Exam Extremities exam: Present: full ROM, normal capillary refill, other (2+ pulses noted in the bilateral upper, lower extremities. Compartments soft, no long bony tenderness in the pelvis is stable. On the plantar aspect of the right great toe, there is a chronic healing wound, approximately 1 x 1.5 cm, no redness, pus or streaking, appropriate granulation tissue.). Absent: normal inspection, tenderness, pedal edema, joint swelling, calf tenderness - Back Exam Back exam: Present: normal inspection, full ROM. Absent: muscle spasm, paraspinal tenderness, vertebral tenderness - Neurological Exam Neurological exam: Present: alert, oriented X3, CN II-XII intact, normal gait, other (Extraocular movements intact. Tongue midline. No facial droop. Facial sensation intact to light touch in the V1, V2, V3 distribution bilaterally. 5 and 5 strength in 4 extremities.. Sensation is intact to light touch in 4 extremities.). Absent: motor sensory deficit - Psychiatric Psychiatric exam: Absent: homicidal ideation, suicidal ideation - Skin Skin exam: Present: warm, dry, intact, normal color. Absent: rash ED Course Vital Signs 05/08/18 05/08/18 05/08/18 19:38 19:43 23:43 Temperature 98.8 F 98.5 F Pulse Rate 75 70 Respiratory 16 16 Rate Blood Pressure 157/88 Blood Pressure 145/76 [Left] O2 Sat by Pulse 100 100 100 Oximetry - Reevaluation(s) Reevaluation #1: 05/08/18 21:10 Respiratory rate calculated 14-16 breaths per minute. ED Medical Decision Making - Lab Data Result diagrams: 05/08/18 19:55 05/08/18 19:55 Vital Signs 05/08/18 19:38 Temperature 98.8 F Pulse Rate 75 Blood Pressure 157/88 O2 Sat by Pulse 100 Oximetry Vital Signs 05/08/18 19:38 Temperature 98.8 F Pulse Rate 75 Blood Pressure 157/88 O2 Sat by Pulse 100 Oximetry Lab Results 05/08/18 05/08/18 05/08/18 Range/Units 19:52 19:52 19:55 WBC (4.5-11.0) K/mm3 RBC (3.65-5.03) M/mm3 Hgb (11.8-15.2) gm/dl Hct (35.5-45.6) % MCV (84-94) fl MCH (28-32) pg MCHC (32-34) % RDW (13.2-15.2) % Plt Count (140-440) K/mm3 Lymph % (Auto) (13.4-35.0) % [place] % (Auto) (0.0-7.3) % Eos % (Auto) (0.0-4.3) % Baso % (Auto) (0.0-1.8) % Lymph # (1.2-5.4) K/mm3 [place] # (0.0-0.8) K/mm3 Eos # (0.0-0.4) K/mm3 Baso # (0.0-0.1) K/mm3 Seg Neutrophils % (40.0-70.0) % Seg Neutrophils # (1.8-7.7) K/mm3 Sodium (137-145) mmol/L Potassium (3.6-5.0) mmol/L Chloride (98-107) mmol/L Carbon Dioxide (22-30) mmol/L Anion Gap mmol/L BUN (9-20) mg/dL Creatinine (0.8-1.5) mg/dL Estimated GFR ml/min BUN/Creatinine Ratio % Glucose (75-100) mg/dL Calcium (8.4-10.2) mg/dL Urine Color Straw (Yellow) Urine Turbidity Clear (Clear) Urine pH 7.0 (5.0-7.0) Ur Specific [place] 1.004 (1.003-1.030) Urine Protein <15 mg/dl (Negative) mg/dL Urine Glucose (UA) Neg (Negative) mg/dL Urine Ketones Neg (Negative) mg/dL Urine Blood Neg (Negative) Urine Nitrite Neg (Negative) Urine Bilirubin Neg (Negative) Urine Urobilinogen < 2.0 (<2.0) mg/dL Ur Leukocyte Esterase Neg (Negative) Urine WBC (Auto) 3.0 (0.0-6.0) /HPF Urine RBC (Auto) < 1.0 (0.0-6.0) /HPF U Epithel Cells (Auto) < 1.0 (0-13.0) /HPF Salicylates < 0.3 L (2.8-20.0) mg/dL Urine Opiates Screen Presumptive negative Urine Methadone Screen Presumptive negative Acetaminophen (10.0-30.0) ug/mL Ur Barbiturates Screen Presumptive negative Ur Phencyclidine Scrn Presumptive negative Ur Amphetamines Screen Presumptive negative U Benzodiazepines Scrn Presumptive negative [place] (0.0-1.2) mmol/L Urine Cocaine Screen Presumptive negative U Marijuana (THC) Screen Presumptive negative Drugs of Abuse Note Disclamer Plasma/Serum Alcohol (0-0.07) % 05/08/18 05/08/18 05/08/18 Range/Units 19:55 19:55 19:55 WBC (4.5-11.0) K/mm3 RBC (3.65-5.03) M/mm3 Hgb (11.8-15.2) gm/dl Hct (35.5-45.6) % MCV (84-94) fl MCH (28-32) pg MCHC (32-34) % RDW (13.2-15.2) % Plt Count (140-440) K/mm3 Lymph % (Auto) (13.4-35.0) % [place] % (Auto) (0.0-7.3) % Eos % (Auto) (0.0-4.3) % Baso % (Auto) (0.0-1.8) % Lymph # (1.2-5.4) K/mm3 [place] # (0.0-0.8) K/mm3 Eos # (0.0-0.4) K/mm3 Baso # (0.0-0.1) K/mm3 Seg Neutrophils % (40.0-70.0) % Seg Neutrophils # (1.8-7.7) K/mm3 Sodium 137 (137-145) mmol/L Potassium 3.6 (3.6-5.0) mmol/L Chloride 95.4 L (98-107) mmol/L Carbon Dioxide 28 (22-30) mmol/L Anion Gap 17 mmol/L BUN 11 (9-20) mg/dL Creatinine 0.9 (0.8-1.5) mg/dL Estimated GFR > 60 ml/min BUN/Creatinine Ratio 12 % Glucose 95 (75-100) mg/dL Calcium 9.5 (8.4-10.2) mg/dL Urine Color (Yellow) Urine Turbidity (Clear) Urine pH (5.0-7.0) Ur Specific [place] (1.003-1.030) Urine Protein (Negative) mg/dL Urine Glucose (UA) (Negative) mg/dL Urine Ketones (Negative) mg/dL Urine Blood (Negative) Urine Nitrite (Negative) Urine Bilirubin (Negative) Urine Urobilinogen (<2.0) mg/dL Ur Leukocyte Esterase (Negative) Urine WBC (Auto) (0.0-6.0) /HPF Urine RBC (Auto) (0.0-6.0) /HPF U Epithel Cells (Auto) (0-13.0) /HPF Salicylates (2.8-20.0) mg/dL Urine Opiates Screen Urine Methadone Screen Acetaminophen < 5.0 L (10.0-30.0) ug/mL Ur Barbiturates Screen Ur Phencyclidine Scrn Ur Amphetamines Screen U Benzodiazepines Scrn [place] (0.0-1.2) mmol/L Urine Cocaine Screen U Marijuana (THC) Screen Drugs of Abuse Note Plasma/Serum Alcohol < 0.01 (0-0.07) % 05/08/18 05/08/18 Range/Units 19:55 19:55 WBC 9.8 (4.5-11.0) K/mm3 RBC 4.29 (3.65-5.03) M/mm3 Hgb 12.6 (11.8-15.2) gm/dl Hct 37.0 (35.5-45.6) % MCV 86 (84-94) fl MCH 29 (28-32) pg MCHC 34 (32-34) % RDW 14.9 (13.2-15.2) % Plt Count 290 (140-440) K/mm3 Lymph % (Auto) 15.4 (13.4-35.0) % [place] % (Auto) 5.9 (0.0-7.3) % Eos % (Auto) 3.8 (0.0-4.3) % Baso % (Auto) 2.1 H (0.0-1.8) % Lymph # 1.5 (1.2-5.4) K/mm3 [place] # 0.6 (0.0-0.8) K/mm3 Eos # 0.4 (0.0-0.4) K/mm3 Baso # 0.2 H (0.0-0.1) K/mm3 Seg Neutrophils % 72.8 H (40.0-70.0) % Seg Neutrophils # 7.1 (1.8-7.7) K/mm3 Sodium (137-145) mmol/L Potassium (3.6-5.0) mmol/L Chloride (98-107) mmol/L Carbon Dioxide (22-30) mmol/L Anion Gap mmol/L BUN (9-20) mg/dL Creatinine (0.8-1.5) mg/dL Estimated GFR ml/min BUN/Creatinine Ratio % Glucose (75-100) mg/dL Calcium (8.4-10.2) mg/dL Urine Color (Yellow) Urine Turbidity (Clear) Urine pH (5.0-7.0) Ur Specific [place] (1.003-1.030) Urine Protein (Negative) mg/dL Urine Glucose (UA) (Negative) mg/dL Urine Ketones (Negative) mg/dL Urine Blood (Negative) Urine Nitrite (Negative) Urine Bilirubin (Negative) Urine Urobilinogen (<2.0) mg/dL Ur Leukocyte Esterase (Negative) Urine WBC (Auto) (0.0-6.0) /HPF Urine RBC (Auto) (0.0-6.0) /HPF U Epithel Cells (Auto) (0-13.0) /HPF Salicylates (2.8-20.0) mg/dL Urine Opiates Screen Urine Methadone Screen Acetaminophen (10.0-30.0) ug/mL Ur Barbiturates Screen Ur Phencyclidine Scrn Ur Amphetamines Screen U Benzodiazepines Scrn [place] 0.5 (0.0-1.2) mmol/L Urine Cocaine Screen U Marijuana (THC) Screen Drugs of Abuse Note Plasma/Serum Alcohol (0-0.07) % - Medical Decision Making Differential diagnosis, including but not limited to: Medical clearance for psychiatric placement, mood disorder Assessment and plan: 52-year-old male sent for medical clearance for psychiatric placement. He is afebrile with reassuring vital signs and clinically sober at this time, has a [place] Coma Scale of 15, normal neurologic examination and unremarkable physical examination. He has no indication for 1013 at this time. He is not taking valproic acid currently, and his lithium level was within normal limits. In addition, his primary care doctor took him off of his blood thinners a few years ago. He has no recent risk factors for DVT. At this point in time, does not appear to be an immediate medical contraindication for psychiatric admission evaluation and consultation. He has a chronic right foot plantar wound which can be followed up as an outpatient. Critical care attestation.: If time is entered above; I have spent that time in minutes in the direct care of this critically ill patient, excluding procedure time. ED Disposition Clinical Impression: Medical clearance for psychiatric admission, Chronic wound of extremity Disposition: [id number] PSY HOSP/PSY UNIT Is pt being admited?: No Does the pt Need Aspirin: No Condition: Good Instructions: Pressure Ulcer (ED) Additional Instructions: Continue current outpatient medications. Follow up at the wound center routinely for wound care in the right lower extremity. Patient has no obvious medical reason to not pursue outpatient psychiatric therapy or consultation at this time. Please return to the ER right away with fevers, chills, lethargy, irritability, projectile vomiting, change in mental status, confusion, inability to tolerate liquid feeds. Referrals: PRIMARY CARE, [Primary Care Provider] - 3-5 Days [facility] [Outside] - 3-5 Days
[2018-05-09 02:28] VITALS: BP 145/76
== END 2018-05-09 00:30 ==
LOC: ED 19:05
DX: F32.9 Major depressive disorder, single episode, unspecified (principal); S91.101D Unspecified open wound of right great toe without damage to nail, subsequent encounter; F25.9 Schizoaffective disorder, unspecified; F43.10 Post-traumatic stress disorder, unspecified; F14.10 Cocaine abuse, uncomplicated; F19.10 Other psychoactive substance abuse, uncomplicated; F17.200 Nicotine dependence, unspecified, uncomplicated; Z90.89 Acquired absence of other organs; Z88.6 Allergy status to analgesic agent; Z88.5 Allergy status to narcotic agent; Z79.899 Other long term (current) drug therapy; X58.XXXD Exposure to other specified factors, subsequent encounter
CPT/HCPCS: 36415; 80048; 80178; 80307; 81001; 85025; G0480; 80320